=== PATIENT | male | born 1980 | race African-American/Black ===

== ENCOUNTER 2017-01-16 13:21 | Emergency (ER) | payer OTHER ==
[~2017-01-16] VITALS: Ht 170.2 cm; Wt 77.1 kg
[2017-01-16] MEDS ORDERED: NORCO 5-325 TA1 EACH PO (15:07)
[2017-01-16 15:24] VITALS: BP 140/94
== END 2017-01-16 15:25 | disposition home or self-care (01) ==
LOC: ER 13:21
DX: S13.4XXA Sprain of ligaments of cervical spine, initial encounter (principal); F17.210 Nicotine dependence, cigarettes, uncomplicated; F10.99 Alcohol use, unspecified with unspecified alcohol-induced disorder; V89.2XXA Person injured in unspecified motor-vehicle accident, traffic, initial encounter; Y93.89 Activity, other specified; Y92.89 Other specified places as the place of occurrence of the external cause; Y99.8 Other external cause status